=== PATIENT | female | born 1960 | race Caucasian/White ===

== ENCOUNTER 2025-10-13 10:36 | Emergency (ER) | payer BC ==
[~2025-10-13] VITALS: Ht 165.1 cm; Wt 77.1 kg
[2025-10-13 10:38] VITALS: BP 103/69
[2025-10-13] MEDS ORDERED: ACETAMINOPHEN 500 MG TABLET ONE (11:00)
[2025-10-13] MEDS ORDERED: IBUPROFEN 200 MG TABLET ONE ×2 (11:00→11:05)
[2025-10-13] MEDS: ACETAMINOPHEN 500 MG TABLET PO ONE (11:04)
[2025-10-13] MEDS: IBUPROFEN 200 MG TABLET PO ONE (11:07)
[2025-10-13 15:17] VITALS: BP 123/66; O2SAT 98
== END 2025-10-13 15:18 | disposition home or self-care (01) ==
LOC: ER 10:36
DX: S42.211A Unspecified displaced fracture of surgical neck of right humerus, initial encounter for closed fracture (principal); E78.00 Pure hypercholesterolemia, unspecified; M19.011 Primary osteoarthritis, right shoulder; Z85.72 Personal history of non-Hodgkin lymphomas; Z88.6 Allergy status to analgesic agent; Z91.81 History of falling; W18.39XA Other fall on same level, initial encounter; Y93.89 Activity, other specified; Y92.89 Other specified places as the place of occurrence of the external cause; Y99.9 Unspecified external cause status
CPT/HCPCS: 73020; 73200; A4606; A4663; A9150